=== PATIENT | male | born 1965 | race Caucasian/White ===

== ENCOUNTER 2019-03-07 11:50 | Emergency (ER) | payer MEDICAID ==
[~2019-03-07] VITALS: Ht 172.7 cm; Wt 81.8 kg
[2019-03-07 14:30] VITALS: BP 132/87
== END 2019-03-07 14:32 | disposition home or self-care (01) ==
LOC: ER 11:51
DX: Z04.3 Encounter for examination and observation following other accident (principal); Z59.0 Homelessness; Z98.890 Other specified postprocedural states; W18.39XA Other fall on same level, initial encounter; Y93.89 Activity, other specified; Y92.89 Other specified places as the place of occurrence of the external cause; Y99.8 Other external cause status
CPT/HCPCS: 99284

== ENCOUNTER 2019-03-12 15:40 | Emergency (ER) | payer MEDICAID ==
[~2019-03-12] VITALS: Ht 172.7 cm; Wt 88.6 kg
[2019-03-12] MEDS ORDERED: thiamine 100mg tablet PO ONE (17:05)
[2019-03-12] MEDS ORDERED: normal saline 1000ML IV soln IVB ONE (17:05)
[2019-03-12] MEDS ORDERED: ondansetron/PF 4mg/2ml inj IV ONE (17:05)
--- NOTE | 2019-03-12 17:42 | NUR ---
PT IS REFUSING IV. OK PER LUI ANDERSEN TO HAVE PT DEINK 32 OZ OF WATER AND EAT A HOSPITAL PROVIDED SANDWICH, CHIPS AND APPLE JUICE.
--- NOTE | 2019-03-12 17:43 | NUR ---
PT TOLERATED WATER AND MEAL WELL.
--- NOTE | 2019-03-12 17:44 | NUR ---
PT AMBULATED 100 FEET AROUND THE ER WITH STEADY GAIT.
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
[2019-03-12 18:16] VITALS: BP 152/97
== END 2019-03-12 18:18 | disposition home or self-care (01) ==
LOC: ER 15:41
DX: E86.0 Dehydration (principal); F10.929 Alcohol use, unspecified with intoxication, unspecified; M54.5 Low back pain; Z86.73 Personal history of transient ischemic attack (TIA), and cerebral infarction without residual deficits; Y90.9 Presence of alcohol in blood, level not specified
CPT/HCPCS: 99284; J2405